=== PATIENT | male | born 1960 | race African-American/Black ===

== ENCOUNTER 2017-09-14 21:53 | Emergency (ER) | payer SELFPAY ==
[2017-09-14 22:33] LABS: Eosinophils 2 % (0-10); Hemoglobin 15.7 g/dL (14.0-18.0); Lymphocytes 62 % (21-51); MDiff Complete? YES; Mean Corpuscular HGB CONC 33.7 g/dL (32.0-36.0); Mean Corpuscular Hemoglobin 35.5 pg (27.0-31.0); Mean Platelet Volume 7.6 fL (7.4-10.4); Monocytes 1 % (0-10); Neutrophil 35 % (42-75); PLT Morphology Comment Appears Adequate; Platelet Count 208 thou/uL (130-400); RBC Distribution Width 12.1 % (11.5-14.5); Red Blood Cell (RBC) Count 4.43 mill/uL (4.70-6.10); White Blood Cell (WBC) Count 3.3 thou/uL (4.8-10.8)
[2017-09-14 22:38] LABS: ALT (SGPT) 12 U/L (8-55); AST (SGOT) 21 U/L (5-34); Albumin 4.1 g/dL (3.5-5.0); Alkaline Phosphatase 49 U/L (40-150); Anion Gap 16 mmol/L (10-20); BUN (Urea Nitrogen) 7 mg/dL (8.4-25.7); Bilirubin, Total 0.5 mg/dL (0.2-1.2); Calc. Creatinine Clearance 0 mL/min (70-130); Calcium 9.1 mg/dL (7.8-10.44); Carbon Dioxide 24 mmol/L (22-29); Chloride 106 mmol/L (98-107); Estimated GFR-MDRD 89; Globulin 2.7 g/dL (2.4-3.5); Glucose 121 mg/dL (70-105); Potassium 3.3 mmol/L (3.5-5.1); Protein, Total 6.8 g/dL (6.0-8.3); Sodium 143 mmol/L (136-145)
--- NOTE | 2017-09-14 23:16 | CT ---
CT CERVICAL SPINE NONCONTRAST: History: Fall, neck injury. FINDINGS: Vertebral body heights are maintained. There is disc space narrowing and prominent osteophytosis thro ughout the cervical spine. Grade I spondylolisthesis at the C6-7 level appears to be degenerative. No acute fracture or dislocation are visible. Cervicothoracic junction is intact. IMPRESSION: Prominent degenerative changes cervical spine. No acute osseous abnormalities are demonstrated. POS: [facility]
--- NOTE | 2017-09-14 23:17 | CT ---
CT HEAD NONCONTRAST: History: Head injury, fall. Comparison: 05-05-16 FINDINGS: There is no evidence of acute intracranial hemorrhage or infarct. The ventricles appear normal in siz e, shape, and position. There is no mass effect or shift of midline structures. Visualized paranasal sinuses remain well aerated. IMPRESSION: No acute intracranial abnormalities are demonstrated. POS: [facility]
--- NOTE | 2017-09-19 13:29 | EKG ---
Test Reason : Blood Pressure : / mmHG Vent. Rate : 078 BPM Atrial Rate : 078 BPM P-R Int : 198 ms QRS Dur : 086 ms QT Int : 410 ms P-R-T Axes : 061 083 034 degrees QTc Int : 467 ms Normal sinus rhythm Normal ECG Confirmed by RAYMOND VASQUEZ M.D. ([id number]), film editor ANNIE DINERO ([id number]) on 09/19/2017 1:29:12 PM Referred By: Confirmed By:RAYMOND VASQUEZ M.D.
== END 2017-09-14 23:57 | disposition home or self-care (01) ==
LOC: ERS 21:53
DX: S00.03XA Contusion of scalp, initial encounter (principal); D53.9 Nutritional anemia, unspecified; K40.90 Unilateral inguinal hernia, without obstruction or gangrene, not specified as recurrent; I10 Essential (primary) hypertension; F32.9 Major depressive disorder, single episode, unspecified; F17.210 Nicotine dependence, cigarettes, uncomplicated; Z79.899 Other long term (current) drug therapy; Z72.89 Other problems related to lifestyle; W19.XXXA Unspecified fall, initial encounter
CPT/HCPCS: 70450; 72125; 80053; 80307; 85025; 93005